=== PATIENT | male | born 1980 | race African-American/Black ===

== ENCOUNTER 2020-04-01 18:16 | Emergency (ER) | payer BC ==
[~2020-04-01] VITALS: Ht 188 cm; Wt 130.0 kg
[2020-04-01] MEDS ORDERED: TETANUS, DIPHTHERIA, PERTUSSIS VAC/PF 0.5ML (>7YR OLD) IM ONE (20:30)
[2020-04-01] MEDS ORDERED: LIDOCAINE 1%/EPI 1:100,000 10 ML VIAL IJ ONE (20:30)
[2020-04-01] MEDS ORDERED: BACITRACIN ZINC OINT UDPKT TOP ONE (20:30)
[2020-04-01] MEDS ORDERED: LIDOCAINE HCL/EPINEPHRINE 1%-EPI 1:100,000 20 ML VIAL INFIL NR (20:45)
[2020-04-01 21:12] VITALS: BP 136/84
== END 2020-04-01 21:13 | disposition home or self-care (01) ==
LOC: ER 18:16
DX: S01.511A Laceration without foreign body of lip, initial encounter (principal); X58.XXXA Exposure to other specified factors, initial encounter; Y93.89 Activity, other specified; Y92.89 Other specified places as the place of occurrence of the external cause; Z23 Encounter for immunization
CPT/HCPCS: 90471; 90715; 99283; J3490